=== PATIENT | male | born 1985 | race Caucasian/White ===

== ENCOUNTER 2021-07-12 10:15 | Emergency (ER) | payer SELFPAY ==
[~2021-07-12] VITALS: Ht 165.1 cm; Wt 100.0 kg
[2021-07-12 10:50] VITALS: BP 126/84
[2021-07-12] MEDS ORDERED: IBUPROFEN 600MG TABLET PO ONE (11:15)
[2021-07-12] MEDS ORDERED: ACETAMINOPHEN 325MG TABLET PO ONE (11:15)
== END 2021-07-12 12:18 | disposition home or self-care (01) ==
LOC: ER 10:45
DX: M54.2 Cervicalgia (principal); M54.50 Low back pain, unspecified; V43.52XA Car driver injured in collision with other type car in traffic accident, initial encounter; Y93.89 Activity, other specified; Y92.488 Other paved roadways as the place of occurrence of the external cause
CPT/HCPCS: 99283